=== PATIENT | female | born 1990 | race African-American/Black ===

== ENCOUNTER 2018-02-04 09:34 | Emergency (ER) | payer BC ==
[~2018-02-04] VITALS: Ht 172.7 cm; Wt 81.0 kg
[2018-02-04 09:41] VITALS: BP 132/77
== END 2018-02-04 14:21 | disposition home or self-care (01) ==
LOC: ER 09:34
DX: M79.672 Pain in left foot (principal); K58.9 Irritable bowel syndrome, unspecified
CPT/HCPCS: 73630; 81025; 99284; Z7610; A4565

== ENCOUNTER 2018-07-18 09:26 | Emergency (ER) | payer BC ==
[~2018-07-18] VITALS: Ht 172.7 cm; Wt 79.0 kg
[2018-07-18 19:22] VITALS: BP 136/72
== END 2018-07-18 19:25 | disposition home or self-care (01) ==
LOC: ER 09:26
DX: J30.9 Allergic rhinitis, unspecified (principal); R09.82 Postnasal drip; K58.9 Irritable bowel syndrome, unspecified; R10.9 Unspecified abdominal pain; Z76.0 Encounter for issue of repeat prescription
CPT/HCPCS: 99283

== ENCOUNTER 2018-10-17 06:45 | Emergency (ER) | payer BC, MEDICAID ==
[~2018-10-17] VITALS: Ht 172.7 cm; Wt 73.0 kg
[2018-10-17 08:22] LABS: CLARITY URINE CLOUDY (CLEAR); COLOR URINE YELLOW (YELLOW); KETONES URINE NEGATIVE (NEGATIVE); LEUKOCYTE ESTERASE URINE 1+ (NEGATIVE); NITRITE URINE NEGATIVE (NEGATIVE); OCCULT BLOOD URINE TRACE (NEGATIVE); PH URINE 6.5 (4.5-8.0); PROTEIN URINE NEGATIVE (NEGATIVE); SPECIFIC GRAVITY URINE 1.002 (1.005-1.030); UROBILINOGEN URINE 0.2 E.U./dL (0.2-1.0)
[2018-10-17 10:23] VITALS: BP 116/70
== END 2018-10-17 10:25 | disposition home or self-care (01) ==
LOC: ER 06:45
DX: K58.9 Irritable bowel syndrome, unspecified (principal)
CPT/HCPCS: 81003; 81025; 99283; Z7610

== ENCOUNTER 2018-11-09 06:58 | Emergency (ER) | payer BC, MEDICAID ==
[~2018-11-09] VITALS: Ht 172.7 cm; Wt 78.0 kg
[2018-11-09 07:27] VITALS: BP 129/75
[2018-11-09] MEDS ORDERED: NORT25CA PO (07:34)
[2018-11-09] MEDS ORDERED: DICY20TA11 PO (07:34)
[2018-11-09 08:04] LABS: COLOR URINE YELLOW (YELLOW); KETONES URINE NEGATIVE (NEGATIVE); LEUKOCYTE ESTERASE URINE NEGATIVE (NEGATIVE); NITRITE URINE NEGATIVE (NEGATIVE); OCCULT BLOOD URINE 1+ (NEGATIVE); PROTEIN URINE NEGATIVE (NEGATIVE); SPECIFIC GRAVITY URINE 1.004 (1.005-1.030); UROBILINOGEN URINE 0.2 E.U./dL (0.2-1.0)
[2018-11-09 08:05] LABS: CLARITY URINE CLEAR (CLEAR)
== END 2018-11-09 10:15 | disposition home or self-care (01) ==
LOC: ER 06:58
DX: R11.2 Nausea with vomiting, unspecified (principal); Z76.0 Encounter for issue of repeat prescription; K58.9 Irritable bowel syndrome, unspecified
CPT/HCPCS: 81025; 99283

== ENCOUNTER 2018-12-03 06:34 | Emergency (ER) | payer BC, MEDICAID ==
[~2018-12-03] VITALS: Ht 172.7 cm; Wt 77.0 kg
[~2018-12-03 06:34] MED LIST: DICY20TA11 PO; NORT25CA PO
[2018-12-03 07:00] VITALS: BP 125/82
== END 2018-12-03 08:37 | disposition home or self-care (01) ==
LOC: ER 06:34
DX: H10.9 Unspecified conjunctivitis (principal); H93.8X1 Other specified disorders of right ear; Z79.899 Other long term (current) drug therapy
CPT/HCPCS: 99283

== ENCOUNTER 2020-08-04 13:22 | Emergency (ER) | payer MEDICAID ==
[~2020-08-04] VITALS: Ht 172.7 cm; Wt 95.0 kg
[2020-08-04 13:40] VITALS: BP 135/77
== END 2020-08-04 15:30 | disposition home or self-care (01) ==
LOC: ER 13:40
DX: T78.40XA Allergy, unspecified, initial encounter (principal); X58.XXXA Exposure to other specified factors, initial encounter
CPT/HCPCS: 99281